=== PATIENT | male | born 1995 | race Caucasian/White ===

== ENCOUNTER 2017-08-12 04:55 | Emergency (ER) | payer OTHER ==
[~2017-08-12] VITALS: Ht 182.9 cm; Wt 75.0 kg
[2017-08-12 05:32] VITALS: BP 125/82
[2017-08-12 06:31] LABS: HEMATOCRIT 43.8 % (38.0-50.0); MCH 30.1 PG (29.0-34.0); MCHC 34.5 G/DL (30.0-36.0); MCV 87.3 FL (86-99); MEAN PLAT.VOLUME 10.7 uM^3 (9.0-12.4); PLATELET COUNT 321 K/uL (156-360); RBC DIS.WIDTH-CV 12.3 % (11.8-14.6); RBC DIS.WIDTH-SD 39.4 % (39-53); RED BLOOD COUNT 5.02 M/uL (4.00-5.50)
[2017-08-12 06:51] LABS: TROP-I INTERPRETATION NEGATIVE; TROPONIN-I < 0.01 ng/mL (0.0-0.30)
[2017-08-12 07:10] LABS: ANION GAP 8 MEQ/L (2-14); CHLORIDE 103 MEQ/L (99-109); GFR ESTIMATE (CALCULATED) > 59 mL/min/; GLUCOSE 95 mg/dL (70-99); POTASSIUM 3.8 MEQ/L (3.7-5.4); SAMPLE HEMOLYSIS CHECK 0; SAMPLE ICTERIC CHECK 0; SAMPLE LIPEMIA CHECK 0; SODIUM 139 MEQ/L (136-147); UREA NITROGEN (BUN) 10 mg/dL (9-23)
== END 2017-08-12 09:18 | disposition home or self-care (01) ==
LOC: EME 04:55
DX: R07.9 Chest pain, unspecified (principal)
CPT/HCPCS: 71020; 80048; 84484; 85027; 93005; 99281; 99283